=== PATIENT | male | born 1985 | race Caucasian/White ===

== ENCOUNTER 2018-01-01 00:16 | Emergency (ER) | payer OTHER ==
[2018-01-01 00:20] VITALS: RESP 18
--- NOTE | 2018-01-01 02:12 | ED ---
Psych HPI - General Chief Complaint: Psychiatric Symptoms Stated Complaint: petition Time Seen by Provider: 01/01/18 00:19 Source: patient Mode of arrival: ambulatory - History of Present Illness Initial Comments: This patient is a 32-year-old man brought by law enforcement to have psychiatric evaluation. [facility] [employer] was called by the patient's . They had had a bit of an argument tonight, and the patient admits that he said he should just take a knife and kill himself. The patient's then called [employer] related to this. The patient states that he is not feeling suicidal. He admits being angry and making her marked but not meaning it. He does admit long-standing history of depression, states that he does take Zoloft for this and has been compliant with his medication. He does have good outpatient follow-up. Complaint: suicidal ideation -: hour(s) Associated Psychiatric Symptoms: depression History of same: Yes Quality: constant Improves With: none Worsens With: none Associated Symptoms: denies other symptoms - Related Data Home Medications Medication Instructions Recorded Confirmed Sertraline [Zoloft] 1 tab PO DAILY 01/01/18 01/01/18 Allergies Allergy/AdvReac Type Severity Reaction Status Date / Time No Known Allergies Allergy Verified 01/01/18 00:18 Review of Systems ROS Statement: Those systems with pertinent positive or pertinent negative responses have been documented in the HPI. ROS Other: All systems not noted in ROS Statement are negative. Respiratory: Denies: cough, dyspnea Cardiovascular: Denies: chest pain, palpitations, syncope Gastrointestinal: Denies: abdominal pain, vomiting Musculoskeletal: Denies: back pain Neurological: Denies: headache Psychiatric: Reports: depression. Denies: anxiety, auditory hallucinations, visual hallucinations, homicidal thoughts, suicidal thoughts Past Medical History Past Surgical History: Orthopedic Surgery Past Psychological History: Bipolar, Depression Smoking Status: Never smoker Past Alcohol Use History: None Reported Past Drug Use History: Marijuana General Exam Limitations: no limitations General appearance: alert, in no apparent distress Head exam: Present: atraumatic, normocephalic Eye exam: Present: normal appearance. Absent: scleral icterus, conjunctival injection Respiratory exam: Present: normal lung sounds bilaterally. Absent: respiratory distress, wheezes, rales, rhonchi, stridor Cardiovascular Exam: Present: regular rate, normal rhythm, normal heart sounds. Absent: systolic murmur, diastolic murmur, rubs, gallop GI/Abdominal exam: Present: soft. Absent: distended, tenderness, guarding Neurological exam: Present: alert Psychiatric exam: Present: normal affect, depressed. Absent: agitated, anxious , flat affect, manic, homicidal ideation, suicidal ideation Skin exam: Present: warm, dry, intact, normal color. Absent: rash Course Vital Signs 01/01/18 00:18 Temperature 98.2 F Pulse Rate 98 Respiratory 18 Rate Blood Pressure 150/110 O2 Sat by Pulse 99 Oximetry Disposition Clinical Impression: Adjustment reaction, Acute anxiety Disposition: HOME SELF-CARE Condition: Good Instructions: Mood Disorders (ED) Is patient prescribed a controlled substance at d/c from ED?: No Referrals: Angus White MD [Primary Care Provider] - 1-2 days
[2018-01-01 03:21] VITALS: BP 140/60; PULSE 84; TEMP 97.8
== END 2018-01-01 02:50 | disposition home or self-care (01) ==
LOC: EC 00:16 → SUPCPDRO 00:16 → EC 02:50
DX: F43.22 Adjustment disorder with anxiety (principal); F31.9 Bipolar disorder, unspecified; Z79.899 Other long term (current) drug therapy
CPT/HCPCS: 82075; 99285